=== PATIENT | female | born 1980 | race Caucasian/White ===

== ENCOUNTER → 2017-10-05 | Outpatient (CLI) | payer MEDICAID ==
[2016-10-09 10:58] VITALS: BMI 30.2
[~2017-10-05] MED LIST: ALP25 PO; ARIP10TA4 PO; BAC15T TOP; CAR200 PO; CARB-83 PO; CARB400T10 PO; CARB400T8 PO; CEP500 PO; DIA2 PO; ERYT400T73 PO; FLUO-202 PO; GAB300 PO; HYDR25CA83 PO; HYDR50CA47 PO; IBUP600T22 PO; LEVO88TA43 PO; LIT300CAP PO; LURA40TA3 PO; MECL-111 PO; METH-543 PO; MULT-865 PO; OXYC-865 PO; TOPI-121 PO; TRAZ50 PO; [UNRECOGNIZED DRUG - CODE] TP
[2017-10-05 07:49] LABS: PLATELET COUNT, AUTOMATED 281 K/uL (150-450)
[2017-10-05 11:01] LABS: LDL CHOLESTEROL 98 mg/dl
== END ==
LOC: LAB 07:26
PROVIDERS: ATTEND Psychiatry & Neurology Psychiatry
DX: Z51.81 Encounter for therapeutic drug level monitoring (principal); Z79.899 Other long term (current) drug therapy; E03.9 Hypothyroidism, unspecified
CPT/HCPCS: 36415; 82040; 82247; 82310; 82374; 82435; 82465; 82565; 82947; 83036; 83718; 84075; 84132; 84155; 84295; 84439; 84443; 84450; 84460; 84478; 84481; 84520; 85025

== ENCOUNTER → 2018-05-03 | Outpatient (CLI) | payer MEDICAID ==
[2016-10-09 10:58] VITALS: BMI 30.2
--- NOTE | 2018-05-03 12:17 | EKG ---
FACILITY: [facility] [place] PATIENT NAME: EPIFANIO POLLOCK : [id number] MR: [id number]: [id number] EXAM DATE: ORDERING PHYSICIAN: CHUN STOLL TECHNOLOGIST: VANE Tirado Reason : Blood Pressure : / mmHG Vent. Rate : 064 BPM Atrial Rate : 064 BPM P-R Int : 124 ms QRS Dur : 090 ms QT Int : 414 ms P-R-T Axes : 066 074 031 degrees QTc Int : 427 ms Normal sinus rhythm Nonspecific T wave abnormality Abnormal ECG No previous ECGs available Confirmed by HOLLY FRANCO ([id number]) on 05/03/2018 2:53:39 PM Referred By: MESFIN Confirmed By:HOLLY FRANCO
== END ==
LOC: RESP 12:03
PROVIDERS: ATTEND Psychiatry & Neurology Psychiatry
DX: R94.31 Abnormal electrocardiogram [ECG] [EKG] (principal)
CPT/HCPCS: 93005

== ENCOUNTER → 2018-06-07 | Outpatient (CLI) | payer MEDICAID ==
[2016-10-09 10:58] VITALS: BMI 30.2
== END ==
LOC: US 00:40
PROVIDERS: ATTEND Nurse Practitioner Psychiatric/Mental Health
DX: R00.1 Bradycardia, unspecified (principal)
CPT/HCPCS: 93306

== ENCOUNTER → 2018-10-30 | Outpatient (CLI) | payer MEDICAID ==
[2016-10-09 10:58] VITALS: BMI 30.2
[2018-10-30 07:59] LABS: PLATELET COUNT, AUTOMATED 269 K/uL (150-450)
[2018-10-30 08:19] LABS: LDL CHOLESTEROL 112 mg/dl
== END ==
LOC: LAB 07:25
PROVIDERS: ATTEND Pediatrics Pediatric Gastroenterology
DX: E03.9 Hypothyroidism, unspecified (principal); Z79.899 Other long term (current) drug therapy
CPT/HCPCS: 36415; 82040; 82247; 82310; 82374; 82435; 82465; 82565; 82947; 83036; 83718; 84075; 84132; 84155; 84295; 84439; 84443; 84450; 84460; 84478; 84481; 84520; 85025